=== PATIENT | female | born 1990 | race African-American/Black ===

== ENCOUNTER → 2021-01-04 14:19 | Outpatient (CLI) | payer OTHER, SELFPAY ==
[2021-01-04 15:32] LABS: Absolute Lymphocyte Count 2.13 X10^3/uL (0.83-4.51); Absolute Neutrophil Count 2.5 X10^3/uL (2.0-7.7); Basophil# 0.04 X10^3/uL; Basophil% 0.7 % (0-1); Eosinophil# 0.37 X10^3/uL; Eosinophils% 6.8 % (0-5); Hematocrit 40.6 % (37-47); Hemoglobin 13.5 g/dL (12.0-15.0); Lymphocyte # 2.13 X10^3/ul (0.83-4.51); Lymphocyte % 39.4 % (19-41); Mean Corp Hgb Conc 33.3 g/dL (32-36); Mean Corpuscular Volume 90.2 fL (81-99); Mean Platelet Vol. 10.9 fl (6.2-12.0); Monocyte# 0.37 X10^3/uL; Monocyte% 6.8 % (0-10); NRBC Flagged by Analyzer 0 % (0-5); Neutrophil # 2.47 X10^3/uL (2.7-7.7); Neutrophil % 45.7 % (47-70); Platelet Count 239 K/mm3 (150-450); RBC Distribution Width CV 12.3 % (11.6-14.6); RBC Distribution Width SD 40.3 fl (35.1-43.9); White Blood Count 5.4 K/mm3 (4.4-11.0)
[2021-01-04 15:55] LABS: ALB/GLOB Ratio 0.9 RATIO (0.9-2.4); AST(SGOT) 20 U/L (15-37); Alanine Aminotransfer ALT/SGPT 28 U/L (13-56); Albumin, Serum 3.8 g/dL (3.2-5.0); Alkaline Phosphatase 59 U/L (45-117); Anion Gap 5 (5-15); BUN 8 mg/dL (7-18); BUN/Creat Ratio 12.8 RATIO (10-20); Calcium,Total 9.2 mg/dL (8.5-10.1); Chloride 105 mmol/L (98-107); Cholesterol 175 mg/dL (200); Creatinine, Serum 0.62 mg/dL (0.55-1.02); EST Glomerular Filtration Rate 119 mL/min (>60); Est Glom Filt Rate - Afr Amer 145 mL/min (>60); Globulin 4.1 g/dL (2.2-4.2); Glucose 82 mg/dL (74-106); High Density Lipoprotein 46 mg/dL; Protein, Total 7.9 g/dL (6.4-8.2); Sodium Level 137 mmol/L (136-145); Triglycerides 80 mg/dL; Very Low Density Lipoprotein 16 mg/dL (5-40)
== END ==
PROVIDERS: PCP Internal Medicine; Referring Provider Internal Medicine; Visit Provider Internal Medicine
DX: L30.9 Dermatitis, unspecified (principal); E66.3 Overweight
CPT/HCPCS: 36415; 80053; 80061; 85025

== ENCOUNTER → 2021-02-06 13:17 | Outpatient (CLI) | payer OTHER, SELFPAY ==
[2021-02-13 00:06] LABS: Beef <0.10 kU/L (Class 0); Clam <0.10 kU/L (Class 0); Codfish <0.10 kU/L (Class 0); Corn <0.10 kU/L (Class 0); Egg, White 0.31 kU/L (Class 0/I); Egg, Whole 0.15 kU/L (Class 0/I); Milk (Cow) <0.10 kU/L (Class 0); Peanut <0.10 kU/L (Class 0); Pork <0.10 kU/L (Class 0); SCALLOP <0.10 kU/L (Class 0); SESAME SEED <0.10 kU/L (Class 0); Shrimp <0.10 kU/L (Class 0); Soybean <0.10 kU/L (Class 0); Walnut, (Food) <0.10 kU/L (Class 0); Wheat <0.10 kU/L (Class 0)
[2021-02-13 14:53] LABS: Chocolate <0.10 kU/L (Class 0)
== END ==
PROVIDERS: PCP Internal Medicine; Visit Provider Internal Medicine Gastroenterology
DX: R13.10 Dysphagia, unspecified (principal)
CPT/HCPCS: 36415; 86003; 86005

== ENCOUNTER 2021-03-22 09:14 | Day surgery (SDC) | payer OTHER, SELFPAY ==
[2021-03-22] VITALS (7 sets, daily range): BP systolic 122–163; BP diastolic 70–94; PULSE 72–90; RESP 15–18; TEMP 36.4–36.8; O2SAT 98–100; BMI 29.7
--- NOTE | 2021-03-22 | ESO_PTH ---
PATIENT: SADIQ CELIS LOC: EN U#:[id number] AGE/SX: 30/F ROOM: RE03/22/[address]: Dr. Hardy Qureshi DO : 1990 BED: DIS: 03/22/2021 SPEC #: [id number] RECD: 03/22/21 12:24 STATUS: DERIK CONI #: [id number] DAVID: 03/22/21 00:[address]: Hardy Qureshi DEPT: SURGICAL PATHOLOGY RECD BY: Dwight Espinoza ENTERED: 03/23/21 08:28 SP TYPE: SHARLENE WARNER DR: Dr. Edward Gimenez MD Tissues: Esophagus, NOS Procedures: Special Stain Group II Surgery Specimen Level IV Alcian Blue/PAS (control) HEADER OPERATION: EGD with biopsies, dilation (MAC) PRE-OP DIAGNOSIS: Dysphagia TISSUE SUBMITTED: Random esophagus biopsy for eosinophilic esophagitis MICROSCOPIC DIAGNOSIS Random esophagus, biopsy: Squamous mucosa consistent with eosinophilic esophagitis. Junctional mucosa with mild chronic inflammation. No evidence of goblet cell metaplasia. See Comment. AM/am 03/24/21 COMMENT AB/PAS stain with matched control supports the diagnosis. MICROSCOPIC DESCRIPTION Slides are reviewed. GROSS DESCRIPTION Received is one container labeled with the patient name and designated random esophagus biopsy. The specimen consists of multiple irregular fragments of light diaz soft tissue that in aggregate measure 1 x 0.3 x 0.1 cm. The specimen is totally submitted in one cassette. / AM:dave 03/23/2021 TC:3 CPT: 03214, 88248
[2021-03-22] MEDS: Lactated Ringers 1,000 ML 15 ML IV (09:00)
[2021-03-22 09:38] LABS: Internal QC Validated? YES +Cl - CLEAR BKGD; Pregnancy, Urine Negative Negative
--- NOTE | 2021-03-22 10:03 | PCM.HP.BLA ---
History and Physical Date of Admission: 03/22/21 30 F who presents to the office today for evaluation of esophageal dysphagia. She does have a past medical history of atopic dermatitis associated with eczema. She has been having increasing difficulty swallowing over the past year including dysphagia without odynophagia to liquids and progressing to solid foods. She does not have a past medical history of gastroesophageal reflux disease or asthma. She has had some allergic conditions associated with some possible angioedema in the recent past. She does keep an EpiPen around for emergencies. She is never had food allergy testing. She has no known drug allergies. Dr. Gimenez referred following office visit 01/05/21 where difficulty with swallowing and choking was noted with progressive worsening. 01/04/21 biochemical workup performed with findings of low neutrophils and increased eosinophils. Notes difficulty swallowing with foods and will feel like a bolus that is getting stuck. Onset about a year ago with progressive worsening. She had one episode of choking. No difficulty with liquids. ROS Const Constitutional: Positive for headache(s) ENT ENT: Positive for headache(s) and difficulty swallowing Gastro GI: Positive for heartburn and difficulty swallowing Musc Musculoskeletal: Positive for joint pain and back pain Neuro Neurology: Positive for headache(s) Psych Psychiatric: Positive for anxiety Exam Const General: cooperative and comfortable Nutritional Appearance: average body habitus and well nourished HENME Head: normal to inspection Ears: hearing grossly normal bilaterally Nose: external nose normal Face and sinus: normal facial exam Mouth: oral mucosae normal Throat: posterior oropharynx normal Eyes General: appearance normal, both eyes and all related structures Neck Neck: normal visual inspection Chest Chest palpation & inspection: normal inspection of the chest and normal palpation of entire chest wall Resp Effort & Inspection: normal respiratory effort Auscultation: Bilateral: Clear to Auscultation Cardio Palpation: normal PMI Rate: regular rate Rhythm: regular rhythm GI Inspection: normal to inspection Auscultation: normal bowel sounds Percussion: normal to percussion Palpation: no hepatosplenomegaly Skin General: no rashes or lesions noted Neuro General: patient alert Extrem General: normal to inspection Psych Affect: normal affect Quality Reporting Tobacco Screening ([facility] 138) Smoking Status: Never smoker Assessment and Plan Assessment and Plan (1) Dysphagia: Status: Acute Orders: Orders: EGD Today Allergen, Rast Food Profile Today Allergen, Food Profile Today Referrals: Gastroenterology Plan - Dr. Hardy Qureshi, DO: The differential diagnosis for esophageal dysphagia would include eosinophilic esophagitis, esophageal ring, esophageal diverticulum, esophageal web, esophageal stricture. She will undergo EGD with biopsies esophagus and possible esophageal dilation. She also may need esophageal manometry in the future as the differential diagnosis also includes hypertensive esophagus and cricopharyngeal achalasia. We will get food allergy testing. She was explained alternatives, risk, benefits including not withstanding bleeding, infection, sepsis, perforation, need for emergent and . She will have an ASA 1. Orders: Orders: EGD Today Allergen, Rast Food Profile Today Allergen, Food Profile Today Referrals: Gastroenterology Plan - Dr. Hardy Qureshi, DO: The differential diagnosis for esophageal dysphagia would include eosinophilic esophagitis, esophageal ring, esophageal diverticulum, esophageal web, esophageal stricture. She will undergo EGD with biopsies esophagus and possible esophageal dilation. She also may need esophageal manometry in the future as the differential diagnosis also includes hypertensive esophagus and cricopharyngeal achalasia. We will get food allergy testing. She was explained alternatives, risk, benefits including not withstanding bleeding, infection, sepsis, perforation, need for emergent and . She will have an ASA 1. (2) Dysphagia: Status: Acute Orders: Orders: EGD Today Allergen, Rast Food Profile Today Allergen, Food Profile Today Referrals: Gastroenterology Plan - Dr. Hardy Qureshi, DO: The differential diagnosis for esophageal dysphagia would include eosinophilic esophagitis, esophageal ring, esophageal diverticulum, esophageal web, esophageal stricture. She will undergo EGD with biopsies esophagus and possible esophageal dilation. She also may need esophageal manometry in the future as the differential diagnosis also includes hypertensive esophagus and cricopharyngeal achalasia. We will get food allergy testing. She was explained alternatives, risk, benefits including not withstanding bleeding, infection, sepsis, perforation, need for emergent and . She will have an ASA 1. I have re-examined the patient. There are no clinical changes since date of exam.
--- NOTE | 2021-03-22 10:37 | OP.EGD_ITS ---
Patient Name: Tracy Shin Procedure Date: 03/22/2021 10:17 AM Date of : 1990 Age: 30 Procedure: Upper GI endoscopy Indications: Dysphagia Providers: Hardy Qureshi DO Referring MD: Hardy Qureshi DO Medicines: See the Anesthesia note for documentation of the administered medications Patient Profile: This is a 30 year old female. Refer to note in patient chart for documentation of history and physical. Patient has symptoms of chronic dysphagia and dysphagia with solids. Complications: No immediate complications. Procedure: Pre-Anesthesia Assessment: - Prior to the procedure, a History and Physical was performed, and patient medications and allergies were reviewed. The patient is competent. The risks and benefits of the procedure and the sedation options and risks were discussed with the patient. All questions were answered and informed consent was obtained. Patient identification and proposed procedure were verified by the physician in the pre-procedure area. Mental Status Examination: alert and oriented. Airway Examination: normal oropharyngeal airway and neck mobility. Respiratory Examination: clear to auscultation. CV Examination: normal. Prophylactic Antibiotics: The patient does not require prophylactic antibiotics. Prior Anticoagulants: The patient has taken no previous anticoagulant or antiplatelet agents. ASA Grade Assessment: II - A patient with mild systemic disease. After reviewing the risks and benefits, the patient was deemed in satisfactory condition to undergo the procedure. The anesthesia plan was to use moderate sedation / analgesia (conscious sedation). Immediately prior to administration of medications, the patient was re-assessed for adequacy to receive sedatives. The heart rate, respiratory rate, oxygen saturations, blood pressure, adequacy of pulmonary ventilation, and response to care were monitored throughout the procedure. The physical status of the patient was re-assessed after the procedure. After obtaining informed consent, the endoscope was passed under direct vision. Throughout the procedure, the patient's blood pressure, pulse, and oxygen saturations were monitored continuously. The Endoscope was introduced through the mouth, and advanced to the second part of duodenum. The upper GI endoscopy was accomplished without difficulty. The patient tolerated the procedure well. Moderate Sedation: Moderate (conscious) sedation was administered by the endoscopy nurse and supervised by the endoscopist. The patient's oxygen saturation, heart rate, blood pressure and response to care were monitored. Total physician intraservice time was 15 minutes. Scope In: 10:22:37 AM Scope Out: 10:30:46 AM Total Procedure Duration Time 0 hours 8 minutes 9 seconds Findings: Mucosal changes including feline appearance, longitudinal furrows, small-caliber esophagus, white plaques, congestion (edema) and stenosis were found in the entire esophagus. Esophageal findings were graded using the Eosinophilic Esophagitis Endoscopic Reference Score (EoE-EREFS) as: Edema Grade 1 Present (decreased clarity or absence of vascular markings), Rings Grade 2 Moderate (distinct rings that do not occlude passage of diagnostic 8-10 mm endoscope), Exudates Grade 1 Mild (scattered white lesions involving less than 10 percent of the esophageal surface area), Furrows Grade 1 Present (vertical lines with or without visible depth) and Stricture present. Biopsies were obtained from the proximal and distal esophagus with cold forceps for histology of suspected eosinophilic esophagitis. Verification of patient identification for the specimen was done. Estimated blood loss was minimal. A moderate Schatzki ring was found in the upper third of the esophagus and in the lower third of the esophagus. A guidewire was placed and the scope was withdrawn. Dilation was performed with a Savary dilator with no resistance at 54 Fr. The dilation site was examined following endoscope reinsertion and showed moderate improvement in luminal narrowing. Estimated blood loss was minimal. There was a 2 cm gastric inlet patch seen in the proximal esophagus. The entire examined stomach was normal. The second portion of the duodenum was normal. Impression: - Esophageal mucosal changes consistent with eosinophilic esophagitis. Biopsied. - Moderate Schatzki ring. Dilated. - Normal stomach. - Normal second portion of the duodenum. Recommendation: - Written discharge instructions were provided to the patient. - The signs and symptoms of potential delayed complications were discussed with the patient. - Patient has a contact number available for emergencies. - Return to normal activities tomorrow. - Resume previous diet. - Continue present medications. - Await pathology results. - Await pathology results. - Repeat upper endoscopy in 1 year for surveillance. - Return to GI clinic in 1 week. Procedure Code(s): --- Professional --- 60322, Esophagogastroduodenoscopy, flexible, transoral; with insertion of guide wire followed by passage of dilator(s) through esophagus over guide wire 55511, 59, Esophagogastroduodenoscopy, flexible, transoral; with biopsy, single or multiple 87964, 59, Moderate sedation services provided by the same physician or other qualified health home care rn performing the diagnostic or therapeutic service that the sedation supports, requiring the presence of an independent trained observer to assist in the monitoring of the patient's level of consciousness and physiological status; initial 15 minutes of intraservice time, patient age 5 years or older CPT copyright 2017 [employer] [employer]. All rights reserved. The codes documented in this report are preliminary and upon sticker operator review may be revised to meet current compliance requirements. Hardy Qureshi DO 03/22/2021 10:37:12 AM This report has been signed electronically. Number of Addenda: 1 Note Initiated On: 03/22/2021 10:17 AM Addendum Number: 1 Addendum Date: 11/06/2021 6:57:06 AM MAC was used for sedation during this procedure. Hardy Qureshi DO 11/06/2021 6:57:12 AM This report has been signed electronically.
--- NOTE | 2021-03-22 10:38 | OP.CCLET_ITS ---
11/06/2021 Edward Gimenez MD [address] [place] [address] [place] [address] Re : Upper GI endoscopy procedure for Tracy Kip Dear Dr. Gimenez This procedure was performed on Monday, March 22, 2021. My impressions and recommendations are as follows: Impressions : - Esophageal mucosal changes consistent with eosinophilic esophagitis. Biopsied. - Moderate Schatzki ring. Dilated. - Normal stomach. - Normal second portion of the duodenum. Recommendations : - Written discharge instructions were provided to the patient. - The signs and symptoms of potential delayed complications were discussed with the patient. - Patient has a contact number available for emergencies. - Return to normal activities tomorrow. - Resume previous diet. - Continue present medications. - Await pathology results. - Await pathology results. - Repeat upper endoscopy in 1 year for surveillance. - Return to GI clinic in 1 week. My findings are described in the full procedure note, which is enclosed. If I can be of further assistance, please feel free to contact me at . Sincerely, Haryd Qureshi, 03/22/2021 10:37:12 AM This report has been signed electronically.
== END 2021-03-22 23:59 | disposition home or self-care (01) ==
LOC: EN 09:16 → AC 09:16
PROVIDERS: Anesthesiology; PCP Internal Medicine; Referring Provider Internal Medicine; Visit Provider Internal Medicine Gastroenterology
PROC: 0DJ08ZZ Inspection of Upper Intestinal Tract, Via Natural or Artificial Opening Endoscopic (ICD-10-PCS; CPT 43235; principal; 2021-03-22 10:10)
DX: K22.2 Esophageal obstruction (principal); K20.90 Esophagitis, unspecified without bleeding; R13.10 Dysphagia, unspecified; K21.9 Gastro-esophageal reflux disease without esophagitis; Z20.822 Contact with and (suspected) exposure to COVID-19
CPT/HCPCS: 43248; 43239; 81025; 87426; 88305; 88313; C9803; J7120; C1769; J2405

== ENCOUNTER → 2021-09-27 | Outpatient (CLI) | payer OTHER, SELFPAY ==
[2021-09-27 15:09] LABS: Erythrocyte Sedimentation Rate 30 mm/hr (0-30)
[2021-09-27 15:34] LABS: Rheumatoid Factor < 10.0 IU/mL (<15)
[2021-09-29 17:17] LABS: ANTINUCLEAR ANTIBODIES DIRECT Negative (Negative)
== END | disposition home or self-care (01) ==
LOC: BIMLAB 12:05
PROVIDERS: PCP Internal Medicine; Referring Provider Internal Medicine; Visit Provider Internal Medicine
DX: R20.0 Anesthesia of skin (principal); M19.90 Unspecified osteoarthritis, unspecified site
CPT/HCPCS: 36415; 85652; 86038; 86225; 86235; 86431

== ENCOUNTER → 2021-12-20 | Outpatient (CLI) | payer OTHER, SELFPAY ==
--- NOTE | 2021-12-20 16:16 | NEURO_ITS ---
NCS and/or EMG Patient Report Ordering Doctor: Edward Gimenez DATE OF SERVICE: 12/20/21 Tracy presents for electrodiagnostic testing of the upper limbs. She reports weakness numbness and tingling in both hands. She reports neck pain. Electrodiagnostic findings: Median motor nerve demonstrates normal distal l atency, amplitude and conduction velocity bilaterally. Normal ulnar motor response bilaterally. Normal median and ulnar F waves. Sensory responses are within normal limits. Needle EMG testing was performed in the upper limbs. 1+ fibrillations noted in the right pronator teres, right triceps and right cervical paraspinals. Motor unit action potentials are of normal amplitude and duration. Electrodiagnostic impression: This is an abnormal study in the upper limbs. 1. Electrodiagnostic findings demonstrate acute right-sided C7 radiculopathy. Consider correlation with cervical spine imaging to evaluate for disc herniation. 2. No electrodiagnostic evidence noted for peripheral neuropathy, including carpal tunnel or cubital tunnel syndrome.
== END | disposition home or self-care (01) ==
LOC: PSN 10:20
PROVIDERS: PCP Internal Medicine; Referring Provider Internal Medicine; Visit Provider Internal Medicine
DX: R20.0 Anesthesia of skin (principal)
CPT/HCPCS: 95886; 95913

== ENCOUNTER → 2022-02-07 | Outpatient (CLI) | payer OTHER, SELFPAY ==
[2022-02-07 15:33] LABS: Absolute Lymphocyte Count 1.32 X10^3/uL (0.83-4.51); Absolute Neutrophil Count 2.4 X10^3/uL (2.0-7.7); Basophil# 0.02 X10^3/uL; Basophil% 0.5 % (0-1); Eosinophil# 0.15 X10^3/uL; Eosinophils% 3.5 % (0-5); Hematocrit 41.6 % (37-47); Hemoglobin 14.1 g/dL (12.0-15.0); Lymphocyte # 1.32 X10^3/ul (0.83-4.51); Lymphocyte % 30.6 % (19-41); Mean Corp Hgb Conc 33.9 g/dL (32-36); Mean Corpuscular Hgb 30.3 pg (27.0-32.0); Mean Corpuscular Volume 89.3 fL (81-99); Mean Platelet Vol. 10.4 fl (6.2-12.0); Monocyte# 0.42 X10^3/uL; Monocyte% 9.7 % (0-10); NRBC Flagged by Analyzer 0 % (0-5); Neutrophil # 2.37 X10^3/uL (2.7-7.7); Neutrophil % 54.8 % (47-70); Platelet Count 244 K/mm3 (150-450); RBC Distribution Width CV 12.7 % (11.6-14.6); RBC Distribution Width SD 41.1 fl (35.1-43.9); Red Blood Count 4.66 M/mm3 (4.2-5.4); White Blood Count 4.3 K/mm3 (4.4-11.0)
[2022-02-07 15:48] LABS: Vitamin D,25 Hydroxy 9.3 ng/mL
[2022-02-07 16:16] LABS: AST(SGOT) 28 U/L (15-37); Alanine Aminotransfer ALT/SGPT 38 U/L (13-56); Albumin, Serum 3.7 g/dL (3.2-5.0); Alkaline Phosphatase 56 U/L (45-117); Anion Gap 6 (5-15); BUN 8 mg/dL (7-18); BUN/Creat Ratio 11.4 RATIO (10-20); Calcium,Total 8.9 mg/dL (8.5-10.1); Chloride 106 mmol/L (98-107); EST Glomerular Filtration Rate 104 mL/min (>60); Est Glom Filt Rate - Afr Amer 125 mL/min (>60); Globulin 3.8 g/dL (2.2-4.2); Glucose 94 mg/dL (74-106); Potassium 4.1 mmol/L (3.5-5.1); Protein, Total 7.5 g/dL (6.4-8.2); Sodium Level 136 mmol/L (136-145)
== END | disposition home or self-care (01) ==
LOC: BIMLAB 10:49
PROVIDERS: PCP Internal Medicine; Referring Provider Internal Medicine; Visit Provider Internal Medicine
DX: F41.9 Anxiety disorder, unspecified (principal); E55.9 Vitamin D deficiency, unspecified
CPT/HCPCS: 36415; 80053; 82306; 85025